=== PATIENT | male | born 1995 | race Caucasian/White ===

== ENCOUNTER 2016-11-19 20:21 | Emergency (ER) | payer OTHER ==
[~2016-11-19] VITALS: Ht 170.2 cm; Wt 85.0 kg
[2016-11-19 20:29] VITALS: Ht 170.2 cm; Wt 85.0 kg
--- NOTE | 2016-11-19 22:01 | RADRPT ---
PROCEDURE: CT Brain without contrast. CLINICAL INDICATION: Trauma, headache TECHNIQUE: A CT of the brain was performed utilizing axial imaging from the skull base through the vertex without IV contrast. Multiplanar reformatted images were made. Images were reviewed on a [employer] workstation. The CTDIvol is eighth 42.81 mGy and the DLP is 720.23 mGycm. One or more the following dose reduction techniques were utilized: Automated exposure control, adjus tment of the mA and / or kV according to patient's size, or use of iterative reconstruction techniqu e. COMPARISON: None FINDINGS: There is no intracranial hemorrhage, mass effect, or midline shift. No extra-axial fluid collection is seen. The ventricles and sulci are normal in size and configuration. The density of the brain is normal, and the tran white matter differentiation appears well-preserved. The visualized paranasal sinuses and osseous structures are grossly unremarkable. IMPRESSION: 1. No evidence of acute intracranial pathology. Mild left frontal extracranial soft tissue swelling . 2. The brain is normal in appearance. RPTAT: HJES .Crescencio Carrington MD, Date Time Electronically viewed and signed by .Crescencio Carrington MD, on 11/19/2016 22:00 .S/
--- NOTE | 2016-11-19 22:10 | RADRPT ---
PROCEDURE: CT cervical spine without contrast. CLINICAL INDICATION: Trauma, neck pain. TECHNIQUE: A CT of the cervical spine was performed without intravenous contrast. Coronal and sag ittal reformats were generated. CTDIvol: 22.21 mGy. DLP: 487.09 mGy-cm. One or more of the following dose reduction techniques were used: - Automated exposure control. - Adjustment of the mA and/or kV according to patient size. - Use of iterative reconstruction technique. COMPARISON: None. FINDINGS: There is a normal cervical lordosis. No spondylolisthesis is seen. The vertebral body heights are m aintained. No fracture or subluxation is seen. The prevertebral soft tissues are normal. There is no degenerative change. The soft tissue structures of the neck are unremarkable. IMPRESSION: 1. No fracture or subluxation of the cervical spine. RPTAT: HTAR .Darin Keane MD, MD Date Time Electronically viewed and signed by .Darin Keane MD, on 11/19/2016 22:09 .R/
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
[2016-11-19 23:58] VITALS: BP 135/82; PULSE 74; RESP 18
== END 2016-11-19 23:59 | disposition home or self-care (01) ==
LOC: E/R 20:21
DX: S06.0X1A Concussion with loss of consciousness of 30 minutes or less, initial encounter (principal); S16.1XXA Strain of muscle, fascia and tendon at neck level, initial encounter; V49.50XA Passenger injured in collision with unspecified motor vehicles in traffic accident, initial encounter
CPT/HCPCS: 70450; 72125

== ENCOUNTER 2018-01-30 07:30 | Emergency (ER) | END 2018-01-30 09:10 | disposition home or self-care (01) ==